=== PATIENT | female | born 1990 | race Hispanic/Latino ===

== ENCOUNTER 2017-12-28 09:09 | Emergency (ER) | payer OTHER ==
[2017-12-28 09:27] VITALS: BP 141/72; PULSE 88; RESP 19; TEMP 98.6; O2SAT 98
[2017-12-28] MEDS ORDERED: Lidocaine 1% Inj (20ml) SC STA (09:46)
--- NOTE | 2017-12-28 10:29 | ED PDOC ---
Upper Extremity Pain/Injury Time Seen by Provider: 12/28/17 09:30 Chief Complaint (Nursing): Abnormal Skin Integrity Chief Complaint (Provider): Right Hand Laceration History Per: Patient History/Exam Limitations: no limitations Onset/Duration Of Symptoms: Mins Current Symptoms Are (Timing): Still Present Additional Complaint(s): Jayne Guadarrama is a 27 year old female that presents to the ED after she cut the volar aspect of her right hand at the base of her thumb and index finger while trying to force ice into a marita jar that shattered. Patient reports that she has some numbness and tingling to the index finger only, and is able to open and close her hand without difficulty. Patient denies any other complaints. Past Medical History Reviewed: Historical Data, Nursing Documentation, Vital Signs Vital Signs: Last Vital Signs Temp 98.6 F 12/28/17 09:25 Pulse 88 12/28/17 09:25 Resp 19 12/28/17 09:25 BP 141/72 12/28/17 09:25 Pulse Ox 98 12/28/17 09:25 - Medical History PMH: No Chronic Diseases - Family History Family History: States: Unknown Family Hx - Allergies Allergies/Adverse Reactions: Allergies Allergy/AdvReac Type Severity Reaction Status Date / Time Penicillins AdvReac RASH Verified 12/28/17 09:25 Review of Systems Musculoskeletal: Positive for: Hand Pain (laceration to right hand, numbness and tingling to index finger) Physical Exam - Reviewed Nursing Documentation Reviewed: Yes Vital Signs Reviewed: Yes - Physical Exam Appears: Positive for: Non-toxic, No Acute Distress Head Exam: Positive for: ATRAUMATIC, NORMOCEPHALIC Skin: Positive for: Normal Color, Warm Eye Exam: Positive for: Normal appearance, EOMI, PERRL Pulses-Radial (L): 2+ Pulses-Radial (R): 2+ Extremity: Positive for: Normal ROM, Deformity (1.5 cm linear laceration present to base of right thumb, 2 cm linear laceration present to base of index finger), Other (Good motor strength in both adduction and abduction of right hand. Able to open and close first. ) - ECG O2 Sat by Pulse Oximetry: 98 (RA) Pulse Ox Interpretation: Normal Medical Decision Making Medical Decision Making: Impression: Laceration to Right hand Plan: * Laceration Repair * Lido 1% 20 mL * Tetanus Booster * Reevaluation Patient tolerated procedure well with no immediate complications. Stable for discharge home. Scribe Attestation: Documented by Katerin Burnham, acting as a scribe for Sonya Garcia MD. Provider Scribe Attestation: All medical record entries made by the Scribe were at my direction and personally dictated by me. I have reviewed the chart and agree that the record accurately reflects my personal performance of the history, physical exam, medical decision making, and the department course for this patient. I have also personally directed, reviewed, and agree with the discharge instructions and disposition. Procedures - Laceration/Wound Repair Right Hand Wound Length (cm): 1.5 (1.5 cm linear laceration present to base of thumb, and 2.0 cm laceration present to base of index finger, both to volar aspect of hand) Wound's Depth, Shape: linear Wound Explored: clean (No debris) Irrigated w/ Saline (ccs): 5 Anesthesia: 1% Lidocaine Wound Repaired With: Sutures Suture Size/Type: 5:0, nylon Number of Sutures: 9 (4 sutures to base of thumb, 5 to base of index finger) Wound Complexity: Simple (interrupted) Sterile Dressing Applied?: Yes Disposition - Clinical Impression Clinical Impression: Laceration - Patient ED Disposition Is Patient to be Admitted: No Doctor Will See Patient In The: Office Counseled Patient/Family Regarding: Diagnosis, Need For Followup - Disposition Referrals: James Arriaga [Outside] Disposition: Routine/Home Disposition Time: 10:30 Condition: IMPROVED Additional Instructions: Tdap vaccine given today (12/28/2017) Instructions: Laceration (ED), Care For Your Stitches (ED) Forms: James Arechiga ([place]), [facility] ED School/Work Excuse - POA Present On Arrival: Falls Or Trauma
[2017-12-28] MEDS ORDERED: Tetanus/Diphtheria Toxoids 0.5 ml Syringe IM ONE (10:32)
== END 2017-12-28 10:52 | disposition home or self-care (01) ==
LOC: H.ER 09:09
DX: S61.411A Laceration without foreign body of right hand, initial encounter (principal); Z88.0 Allergy status to penicillin; W25.XXXA Contact with sharp glass, initial encounter